=== PATIENT | female | born 1990 | race American Indian/Alaskan Native ===

== ENCOUNTER 2017-07-21 21:41 | Emergency (ER) | payer SELFPAY ==
[2017-07-21 22:32] VITALS: BMI 33.0
[2017-07-21 22:38] VITALS: BP 131/77; PULSE 80; RESP 20; TEMP 98.1; O2SAT 100
--- NOTE | 2017-07-21 23:28 | ED PDOC ---
Arrival/HPI <Jai Landin - Last Filed: 07/21/17 23:49> <Daniel Herrera - Last Filed: 07/22/17 03:59> - General Chief Complaint: Abdominal Pain Time Seen by Provider: 07/21/17 22:00 - History of Present Illness Narrative History of Present Illness (Text): 26 year old female with a past medical history significant for miscarriage last year at 6 weeks gestations who presents with 3 days of lower abdominal pain, discharge, and now increased spotting. She reports taking a urine test x2 that was negative. FDLMP was 06/29/17. She denies any dyspareunia, abnormal discharge, nausea, or vomiting. 07/21/17 23:26 (Daniel Herrera) Past Medical History - Provider Review Nursing Documentation Reviewed: Yes - Cardiac Hx Cardiac Disorders: No - Pulmonary Hx Respiratory Disorders: No - Neurological Other/Comment: Reflex Sympathetic Dystrophy - HEENT Hx HEENT Disorder: No - Renal Hx Renal Disorder: No - Endocrine/Metabolic Hx Endocrine Disorders: No - Hematological/Oncological Hx Blood Disorders: No - Integumentary Hx Dermatological Disorder: No - Musculoskeletal/Rheumatological Hx Musculoskeletal Disorders: No - Gastrointestinal Hx Gastrointestinal Disorders: No - Genitourinary/Gynecological Hx Genitourinary Disorders: No - Psychiatric Hx Psychophysiologic Disorder: No Hx Substance Use: No - Anesthesia Hx Anesthesia: No <Daniel Herrera - Last Filed: 07/22/17 03:59> Family/Social History - Physician Review Nursing Documentation Reviewed: Yes Family/Social History: No Known Family HX Smoking Status: Current Some Days Smoker Hx Alcohol Use: No Hx Substance Use: No <Daniel Herrera - Last Filed: 07/22/17 03:59> Allergies/Home Meds <Jai Landin - Last Filed: 07/21/17 23:49> <Daniel Herrera - Last Filed: 07/22/17 03:59> Allergies/Adverse Reactions: Allergies citric acid Allergy (Verified 07/21/17 22:33) VOMITING Review of Systems - Review of Systems Constitutional: Normal. absent: Weight Change, Fevers Eyes: absent: Vision Changes, Photophobia, Eye Pain ENT: absent: Hearing Changes, Tinnitus, Rhinorrhea Respiratory: Normal. absent: SOB, Cough, Sputum Cardiovascular: absent: Chest Pain, Palpitations, Edema Gastrointestinal: Abdominal Pain. absent: Stool Changes, Constipation Genitourinary Female: Vaginal Bleeding. absent: Dysuria, Frequency, Hematuria Musculoskeletal: absent: Arthralgias, Back Pain, Neck Pain Skin: Normal. absent: Rash, Pruritis, Skin Lesions Neurological: absent: Headache, Dizziness Endocrine: absent: Diaphoresis, Polyuria, Polydipsia Hemo/Lymphatic: absent: Easy Bleeding, Easy Bruising Psychiatric: absent: Depression, Suicidal Ideation <Dainel Herrera - Last Filed: 07/22/17 03:59> Physical Exam Temperature: Afebrile Blood Pressure: Normal Pulse: Regular Respiratory Rate: Normal Appearance: Positive for: Well-Appearing, Non-Toxic Pain Distress: Moderate Mental Status: Positive for: Alert and Oriented X 3 - Systems Exam Head: Present: Atraumatic, Normocephalic Pupils: Present: PERRL Extroacular Muscles: Present: EOMI Conjunctiva: Present: Normal Mouth: Present: Moist Mucous Membranes Pharnyx: Present: Normal. No: ERYTHEMA, EXUDATE Neck: Present: Normal Range of Motion. No: Meningeal Signs, JVD Respiratory/Chest: Present: Clear to Auscultation, Good Air Exchange, Respiratory Distress Cardiovascular: Present: Regular Rate and Rhythm, Normal S1, S2 Abdomen: Present: Normal Bowel Sounds. No: Tenderness, Distention, Peritoneal Signs Genitourinary/Pelvic Exam: Present: Vaginal Discharge, Vaginal Bleeding, Other ( absolutely no cervical motion tenderness. ). No: Adenexal Tenderness, Cervical Motion Tendernes Back: No: Normal Inspection, CVA Tenderness Upper Extremity: Present: Normal Inspection. No: Edema, Normal ROM Lower Extremity: Present: Normal Inspection. No: Edema, CALF TENDERNESS Neurological: Present: CN II-XII Intact, Speech Normal Skin: Present: Warm, Dry, Normal Color Lymphatic: No: Inguinal Adenopathy Psychiatric: Present: Alert, Oriented x 3, Normal Insight, Normal Concentration <Daniel Herrera - Last Filed: 07/22/17 03:59> Vital Signs Temp Pulse Resp BP Pulse Ox 07/21/17 22:37 98.1 F 80 20 131/77 100 Medical Decision Making <Jai Landin - Last Filed: 07/21/17 23:49> <Daniel Herrera - Last Filed: 07/22/17 03:59> ED Course and Treatment: Patient was seen and evaluated with the medical transcriber. Agree with HPI, clinical findings, treatment plan. (Jai Landin) Pelvic exam performed. Patient had no cervical motion tenderness or adnexal masses palpated. 07/22/17 00:38 Patient discharged with the below written instructions and prescriptions. 07/22/17 03:57 (Daniel Herrera) - Lab Interpretations Lab Results: 07/21/17 23:03 07/21/17 23:03 Lab Results 07/21/17 23:45: Urine Color Yellow, Urine Appearance Clear, Urine pH 8.0, Ur Specific [place] 1.015, Urine Protein Negative, Urine Glucose (UA) Negative, Urine Ketones Negative, Urine Blood Moderate H, Urine Nitrate Negative, Urine Bilirubin Negative, Urine Urobilinogen 0.2, Ur Leukocyte Esterase Trace H, Urine RBC 1 - 3, Urine WBC 2 - 5, Ur Epithelial Cells 0 - 2, Urine Bacteria Few , Urine HCG, Qual Negative 07/21/17 23:03: Sodium 140, Potassium 4.1, Chloride 101, Carbon Dioxide 30, Anion Gap 13, BUN 12, Creatinine 0.8, Est GFR ( Amer) > 60, Est GFR (Non- Af Amer) > 60, Random Glucose 87, Calcium 8.8, Total Bilirubin 0.3, AST 31, ALT 30, Alkaline Phosphatase 59, Total Protein 7.1, Albumin 3.9, Globulin 3.2, Albumin/Globulin Ratio 1.2, Lipase 70 07/21/17 23:03: WBC 8.0, RBC 4.89, Hgb 13.6, Hct 42.0, MCV 85.9, MCH 27.8, MCHC 32.4, RDW 13.6, Plt Count 285, MPV 9.9, Gran % 55.8, Lymph % (Auto) 34.0, [place] % (Auto) 7.5 H, Eos % (Auto) 2.3, Baso % (Auto) 0.4, Gran # 4.47, Lymph # 2.7, [place] # 0.6, Eos # 0.2, Baso # 0.03 - PA / LIGHT CLEANER / Resident Statement / has reviewed & agrees with the documentation as recorded. / has examined the patient and agrees with the treatment plan. <Jai Landin - Last Filed: 07/21/17 23:49> Disposition/Present on Arrival <Jai Landin - Last Filed: 07/21/17 23:49> - Present on Arrival Any Indicators Present on Arrival: No History of DVT/PE: No History of Uncontrolled Diabetes: No Urinary Catheter: No History of Decub. Ulcer: No History Surgical Site Infection Following: None - Disposition Have Diagnosis and Disposition been Completed?: Yes Disposition Time: 00:50 <Daniel Herrera - Last Filed: 07/22/17 03:59> - Disposition Diagnosis: Dysmenorrhea, Bacterial vaginosis Disposition: HOME/ ROUTINE Condition: STABLE Additional Instructions: [Ms. Mcdonald], thank you for letting us take care of you today. Your provider was [Dr. Herrera and Dr. Landin]. You were treated for [Dysmennorhea and Bacterial Vaginosis]. The emergency medical care you received today was directed at your acute symptoms. If you were prescribed any medication, please fill it and take as directed. It may take several days for your symptoms to resolve. Return to the Emergency Department if your symptoms worsen, do not improve, or if you have any other problems. Please contact your doctor or call one of the physicians/clinics you have been referred to that are listed on the Patient Visit Information form that is included in your discharge packet. Bring any paperwork you were given at discharge with you along with any medications you are taking to your follow up visit. Our treatment cannot replace ongoing medical care by a primary care provider (PCP) outside of the emergency department. Thank you for allowing the [facility] team to be part of your care today. Please follow up with your OBGYN within the next week. Please take any medication as directed. If you had an X-Ray or CT scan: A Radiologist will review the ED reading if any change in treatment is needed we will contact you. If you had a blood, urine, or wound culture: It will take several days for the results, if any change in treatment is needed we will contact you. If you had an STI test: It will take 48 hours for the results. Please call after 1 week if you have not heard back. Prescriptions: Lactobacillus Acidophilus [Acidophilus Lactobacilli] 1 each PO DAILY #7 capsule metroNIDAZOLE [Flagyl] 500 mg PO BID #14 tab Forms: [employer] (Frisian)
[2017-07-21 23:53] LABS: BASO # 0.03 K/mm3 (0.0-2.0); BASO % 0.4 % (0.0-3.0); EOS # 0.2 (0.0-0.7); EOS % 2.3 % (1.5-5.0); GRAN # 4.47 (1.4-6.5); GRAN % 55.8 % (50.0-68.0); LYMPH # 2.7 (1.2-3.4); MEAN CELL VOLUME 85.9 fl (80.0-105.0); MEAN CORPUSCULAR HEMOGLOBIN 27.8 pg (25.0-35.0); MEAN CORPUSCULAR HGB CONC 32.4 g/dl (31.0-37.0); MEAN PLATELET VOLUME 9.9 fl (7.0-11.0); MONO # 0.6 (0.1-0.6); MONO % 7.5 % (1.0-6.0); RED CELL DISTRIBUTION WIDTH 13.6 % (11.5-14.5)
[2017-07-22 00:01] LABS: URINE BILIRUBIN NEGATIVE (NEGATIVE); URINE BLOOD MODERATE (NEGATIVE); URINE GLUCOSE (UA) NEGATIVE (NEGATIVE); URINE KETONE NEGATIVE (NEGATIVE); URINE LEUKOCYTE ESTERASE TRACE Leu/uL (NEGATIVE); URINE PROTEIN NEGATIVE mg/dL (<30 mg/dL); URINE UROBILINOGEN 0.2 E.U./dL (<1 E.U./dL)
[2017-07-22 00:03] LABS: ALB/GLOB RATIO 1.2 (1.1-1.8); ALKALINE PHOSPHATASE 59 U/L (38-126); ALT/SGPT 30 U/L (7-56); AST/SGOT 31 U/L (14-36); BILIRUBIN,TOTAL 0.3 mg/dL (0.2-1.3); BLOOD UREA NITROGEN 12 mg/dL (7-21); CALCIUM 8.8 mg/dL (8.4-10.5); CARBON DIOXIDE 30 mmol/L (21-33); CHLORIDE 101 mmol/L (98-107); GFR AFRICAN-AMERICAN > 60; GLUCOSE,RANDOM 87 mg/dL (70-110); LIPASE 70 U/L (23-300); POTASSIUM 4.1 mmol/L (3.6-5.0); SODIUM 140 mmol/L (132-148); TOTAL PROTEIN 7.1 g/dL (5.8-8.3)
[2017-07-22 00:05] LABS: URINE APPEARANCE CLEAR (CLEAR); URINE COLOR YELLOW (YELLOW)
[2017-07-22 00:16] LABS: URINE BACTERIA FEW (NEG); URINE EPITHELIAL CELLS 0 - 2 /hpf (0-5)
== END 2017-07-22 01:10 | disposition home or self-care (01) ==
LOC: ED 21:41
DX: N94.6 Dysmenorrhea, unspecified (principal); N76.0 Acute vaginitis

== ENCOUNTER 2017-10-28 19:34 | Emergency (ER) | payer OTHER ==
[2017-10-28 19:35] VITALS: BMI 32.8
[2017-10-28 20:04] VITALS: O2SAT 98
--- NOTE | 2017-10-28 20:36 | ED PDOC ---
Arrival/HPI <Jai Landin - Last Filed: 10/28/17 23:47> - General Historian: Patient - History of Present Illness Time/Duration: Other (see hpi) Context: Home <Goldie Watts - Last Filed: 10/29/17 00:49> - General Chief Complaint: Female Genitourinary Time Seen by Provider: 10/28/17 20:35 - History of Present Illness Narrative History of Present Illness (Text): 10/28/17 20:36 This 27 yo female, gravid, , presents to this ED c/o pelvic cramping x 3 days. Patient stated she was 8 days late for her menstrual cycle. She had a positive test. Patient noted mild spotting 8 days ago, but it resolved the same day. Patient denies vaginal discharge, urinary urgency, hematuria, sob, cp, leg swelling, dizziness, or abnormal gait. LMP: 2016 (Goldie Watts) Past Medical History - Provider Review Nursing Documentation Reviewed: Yes - Cardiac Hx Cardiac Disorders: No - Pulmonary Hx Respiratory Disorders: Yes Hx Asthma: Yes - Neurological Hx Neurological Disorder: Yes Other/Comment: Reflex Sympathetic Dystrophy - HEENT Hx HEENT Disorder: No - Renal Hx Renal Disorder: No - Endocrine/Metabolic Hx Endocrine Disorders: No - Hematological/Oncological Hx Blood Disorders: No - Integumentary Hx Dermatological Disorder: No - Musculoskeletal/Rheumatological Hx Musculoskeletal Disorders: No - Gastrointestinal Hx Gastrointestinal Disorders: No - Genitourinary/Gynecological Hx Genitourinary Disorders: No - Psychiatric Hx Psychophysiologic Disorder: No Hx Substance Use: No - Surgical History Other/Comment: NERVE BLOCKS - Anesthesia Hx Anesthesia: Yes - Suicidal Assessment Feels Threatened In Home Enviroment: No <Goldie Watts - Last Filed: 10/29/17 00:49> Family/Social History - Physician Review Nursing Documentation Reviewed: Yes Family/Social History: Other (noncontributory) Smoking Status: Never Smoked Hx Alcohol Use: No Hx Substance Use: No <Goldie Watts - Last Filed: 10/29/17 00:49> Allergies/Home Meds <Jai Landin - Last Filed: 10/28/17 23:47> <Goldie Watts - Last Filed: 10/29/17 00:49> Allergies/Adverse Reactions: Allergies citric acid Allergy (Verified 10/28/17 19:54) RASH Home Medications: Home Meds Medication Instructions Recorded Confirmed Multivit/Folic Acid/I 1 tab PO DAILY 10/28/17 10/28/17 [] Review of Systems - Review of Systems Constitutional: Normal. absent: Fatigue, Weight Change, Fevers Eyes: Normal ENT: Normal Respiratory: Normal Cardiovascular: Normal Gastrointestinal: Abdominal Pain. absent: Constipation, Diarrhea, Nausea, Vomiting, Hematochezia, Hematemesis Genitourinary Female: Frequency, Vaginal Bleeding. absent: Dysuria, Hematuria, Vaginal Discharge Musculoskeletal: Normal. absent: Back Pain Skin: Normal Neurological: Normal. absent: Headache, Dizziness, Focal Weakness, Gait Changes , Speech Changes, Facial Droop, Disequilibrium, Seizure Endocrine: Normal Hemo/Lymphatic: Normal Psychiatric: Normal <Watts,Nah P - Last Filed: 10/29/17 00:49> Physical Exam Temperature: Afebrile Blood Pressure: Normal Pulse: Regular Respiratory Rate: Normal Appearance: Positive for: Well-Appearing, Non-Toxic, Comfortable Pain Distress: None Mental Status: Positive for: Alert and Oriented X 3 - Systems Exam Head: Present: Atraumatic, Normocephalic Pupils: Present: PERRL Extroacular Muscles: Present: EOMI Conjunctiva: Present: Normal Mouth: Present: Moist Mucous Membranes Neck: Present: Normal Range of Motion Respiratory/Chest: Present: Clear to Auscultation, Good Air Exchange. No: Respiratory Distress, Accessory Muscle Use Cardiovascular: Present: Regular Rate and Rhythm, Normal S1, S2. No: Murmurs Abdomen: Present: Normal Bowel Sounds. No: Tenderness, Distention, Peritoneal Signs Back: Present: Normal Inspection Upper Extremity: Present: Normal Inspection. No: Cyanosis, Edema Lower Extremity: Present: Normal Inspection. No: Edema Neurological: Present: GCS=15, CN II-XII Intact, Speech Normal, Motor Func Grossly Intact, Normal Sensory Function, Normal Cerebellar Funct, Gait Normal Skin: Present: Warm, Dry, Normal Color. No: Rashes Psychiatric: Present: Alert, Oriented x 3, Normal Insight, Normal Concentration <Watts,Nahim P - Last Filed: 10/29/17 00:49> Vital Signs Temp Pulse Resp BP Pulse Ox 10/28/17 22:14 82 17 143/89 98 01/10/18 20:02 98.5 F 79 16 135/73 98 Medical Decision Making <Jai Landin - Last Filed: 10/28/17 23:47> Re-evaluation Time: 23:50 Reassessment Condition: Re-examined, Improved - Lab Interpretations I have reviewed the lab results: Yes Interpretation: No clinic. lab abnormalty <Goldie Watts - Last Filed: 10/29/17 00:49> ED Course and Treatment: 10/28/17 23:49 Re-evaluation. Patient feels better. Discussed results and plan with patient who expresses understanding. All questions answered and there is agreement with the plan to discharge home with instructions. Patient stable for discharge. Return if symptoms persist or worsen. Patient was recommended to return to ED in 2 days for repeat of Beta Quant. If she is not able to see her AUTOMOTIVE ASSEMBLER. Return to ED sooner if pelvic pain retsurns or worsening of symptoms. Patient understood plan. (Goldie Watts) - Lab Interpretations Lab Results: 10/28/17 21:32 10/28/17 21:32 Lab Results 10/28/17 22:44: Blood Type O POSITIVE, Antibody Screen Negative, BBK History Checked No verified bt 10/28/17 21:32: Beta HCG, Quant 2044.70 H 10/28/17 21:32: Sodium 139, Potassium 3.8, Chloride 102, Carbon Dioxide 25, Anion Gap 15, BUN 9, Creatinine 0.8, Est GFR ( Amer) > 60, Est GFR (Non- Af Amer) > 60, Random Glucose 92, Calcium 8.9, Total Bilirubin 0.3, AST 23, ALT 29, Alkaline Phosphatase 46, Total Protein 7.4, Albumin 3.9, Globulin 3.5, Albumin/Globulin Ratio 1.1 10/28/17 21:32: Urine Color Yellow, Urine Appearance Clear, Urine pH 7.5, Ur Specific [place] 1.020, Urine Protein Negative, Urine Glucose (UA) Negative, Urine Ketones Trace H, Urine Blood Negative, Urine Nitrate Negative, Urine Bilirubin Negative, Urine Urobilinogen 1.0 H, Ur Leukocyte Esterase Negative, Urine HCG, Qual Positive 10/28/17 21:32: PT 13.1 H, INR 1.15 H, APTT 30.1 10/28/17 21:32: WBC 8.0, RBC 4.68, Hgb 13.2, Hct 40.5, MCV 86.5, MCH 28.2, MCHC 32.6, RDW 14.1, Plt Count 298, MPV 9.3, Gran % 59.8, Lymph % (Auto) 31.7, [place] % (Auto) 6.7 H, Eos % (Auto) 1.5, Baso % (Auto) 0.3, Gran # 4.76, Lymph # 2.5, [place] # 0.5, Eos # 0.1, Baso # 0.02 - RAD Interpretation Narrative RAD Interpretations (Text): 10/28/17 23:00 EXAM: US First Trimester, Transabdominal FINDINGS: Uterus: The uterus is poorly visualized. Uterus is anteflexed. Uterus measures approximately 7 x 3.6 x 5.3 cm. Endometrium cannot be visualized. Ovaries: Neither ovary could be identified. Bladder: The bladder is almost completely empty. IMPRESSION: Limited by body habitus and incomplete bladder distention EXAM: US , Transvaginal FINDINGS: Gestation: There is a small cystic structure in the endometrium of the lower uterine segment of the uterus, mean diameter 4.9 mm. No sac or pole identified Uterus: Endometrium in the fundus measures 17 mm in width Ovaries: Right ovary measures approximately 4 x 2.5 x 3.3 cm. Left ovary measures approximately 3.2 x 2.3 x 3 cm. There is flow in both ovaries on Doppler imaging. No mass. Free fluid: There is no free fluid. IMPRESSION: Small cystic structure suggesting early gestational sac in the lower uterine segment, ectopic versus impending ; no extrauterine ectopic gestation or free fluid identified Serial beta-hCG levels and follow up sonography advised Thank you for allowing us to participate in the care of your patient. Dictated and Authenticated by: Yina Kaiser MD (Goldie Watts) Radiology Orders: 10/28/17 21:02 OB TRANSVAGINAL [US] Stat - PA / POWER WHEELCHAIR MECHANIC / Resident Statement /DO has reviewed & agrees with the documentation as recorded. <Jai Landin - Last Filed: 10/28/17 23:47> Disposition/Present on Arrival <Jai Landin - Last Filed: 10/28/17 23:47> - Present on Arrival Any Indicators Present on Arrival: No History of DVT/PE: No History of Uncontrolled Diabetes: No Urinary Catheter: No History of Decub. Ulcer: No History Surgical Site Infection Following: None - Disposition Have Diagnosis and Disposition been Completed?: Yes Disposition Time: 00:06 Patient Plan: Discharge <Goldie Watts Jo Ann - Last Filed: 10/29/17 00:49> - Disposition Diagnosis: Pelvic pain affecting in first trimester, antepartum Disposition: HOME/ ROUTINE Patient Problems: Current Active Problems Problem Status Onset Pelvic pain affecting in first trimester, antepartum Acute Condition: GOOD Discharge Instructions (ExitCare): Ectopic (ED), Threatened Miscarriage (ED) Additional Instructions: Call private AUTOMOTIVE ASSEMBLER doctor office for a repeat of Beta Quant. blood test in 2 days. Return to emergency if symptoms worsen, or unable to see your AUTOMOTIVE ASSEMBLER in 2 days. Take medication as instructed. Prescriptions: Multivit/Folic Acid/I [ Plus] 1 tab PO DAILY #30 tab Referrals: Keysha Celestin MD [Primary Care Provider] - Follow up with primary [facility] [Outside] - [facility] with [facility] [Outside] - Follow up with primary Forms: [employer] (Serbian)
[2017-10-28 21:45] LABS: BASO # 0.02 K/mm3 (0.0-2.0); BASO % 0.3 % (0.0-3.0); EOS # 0.1 (0.0-0.7); EOS % 1.5 % (1.5-5.0); GRAN # 4.76 (1.4-6.5); GRAN % 59.8 % (50.0-68.0); HEMOGLOBIN 13.2 g/dL (12.0-16.0); LYMPH # 2.5 (1.2-3.4); LYMPH % 31.7 % (22.0-35.0); MEAN CELL VOLUME 86.5 fl (80.0-105.0); MEAN CORPUSCULAR HEMOGLOBIN 28.2 pg (25.0-35.0); MEAN CORPUSCULAR HGB CONC 32.6 g/dl (31.0-37.0); MEAN PLATELET VOLUME 9.3 fl (7.0-11.0); MONO # 0.5 (0.1-0.6); MONO % 6.7 % (1.0-6.0); RBC 4.68 10^6/uL (3.5-6.1); RED CELL DISTRIBUTION WIDTH 14.1 % (11.5-14.5)
[2017-10-28 21:46] LABS: PH,URINE 7.5 (4.7-8.0); URINE BILIRUBIN NEGATIVE (NEGATIVE); URINE BLOOD NEGATIVE (NEGATIVE); URINE GLUCOSE (UA) NEGATIVE (NEGATIVE); URINE LEUKOCYTE ESTERASE NEGATIVE Leu/uL (NEGATIVE); URINE NITRATE NEGATIVE (NEGATIVE); URINE PROTEIN NEGATIVE mg/dL (<30 mg/dL)
[2017-10-28 21:49] LABS: URINE APPEARANCE CLEAR (CLEAR); URINE COLOR YELLOW (YELLOW)
[2017-10-28 21:50] LABS: HCG,QUALITATIVE URINE POSITIVE (NEGATIVE)
[2017-10-28 21:55] LABS: INR 1.15 (0.93-1.08); PARTIAL THROMBOPLASTIN TIME 30.1 Seconds (25.1-36.5); PROTHROMBIN TIME 13.1 SECONDS (9.4-12.5)
[2017-10-28 22:05] LABS: ALB/GLOB RATIO 1.1 (1.1-1.8); ALBUMIN 3.9 g/dL (3.0-4.8); ALT/SGPT 29 U/L (7-56); AST/SGOT 23 U/L (14-36); BLOOD UREA NITROGEN 9 mg/dL (7-21); CALCIUM 8.9 mg/dL (8.4-10.5); GFR AFRICAN-AMERICAN > 60; GFR NON-AFRICAN AMERICAN > 60
[2017-10-28 22:15] VITALS: RESP 17
--- NOTE | 2017-10-28 22:56 | US ---
EXAM: US First Trimester, Transabdominal CLINICAL HISTORY: 27 years old, female; Pain; complicated by abdominal or pelvic pain; Lower; First trimester; Gestational age or lmp: 09/15/2017; TECHNIQUE: Real-time transabdominal obstetrical ultrasound of the maternal pelvis and a first trimester with image documentation. COMPARISON: There are no prior studies for comparison. FINDINGS: Uterus: The uterus is poorly visualized. Uterus is anteflexed. Uterus measures approximately 7 x 3.6 x 5.3 cm. Endometrium cannot be visualized. Ovaries: Neither ovary could be identified. Bladder: The bladder is almost completely empty. IMPRESSION: Limited by body habitus and incomplete bladder distention EXAM: US , Transvaginal EXAM DATE/TIME: 10/28/2017 9:02 PM CLINICAL HISTORY: 27 years old, female; Pain; complicated by abdominal or pelvic pain; Lower; First trimester; Gestational age or lmp: 09/15/2017; TECHNIQUE: Real-time transvaginal obstetrical ultrasound of the maternal pelvis and a first trimester with image documentation. Transvaginal imaging was used for better evaluation of the fetus and adnexa. COMPARISON: There are no prior studies for comparison. FINDINGS: Gestation: There is a small cystic structure in the endometrium of the lower uterine segment of the uterus, mean diameter 4.9 mm. No sac or pole identified Uterus: Endometrium in the fundus measures 17 mm in width Ovaries: Right ovary measures approximately 4 x 2.5 x 3.3 cm. Left ovary measures approximately 3.2 x 2.3 x 3 cm. There is flow in both ovaries on Doppler imaging. No mass. Free fluid: There is no free fluid. IMPRESSION: Small cystic structure suggesting early gestational sac in the lower uterine segment, ectopic versus impending ; no extrauterine ectopic gestation or free fluid identified Serial beta-hCG levels and follow up sonography advised
[2017-10-29 01:00] VITALS: BP 123/88; PULSE 85; TEMP 98.2
== END 2017-10-29 01:00 | disposition home or self-care (01) ==
LOC: ED 19:34
DX: O26.891 Other specified pregnancy related conditions, first trimester (principal); R10.2 Pelvic and perineal pain

== ENCOUNTER 2019-02-28 22:39 | Emergency (ER) | payer MEDICAID, OTHER ==
--- NOTE | 2019-02-28 22:50 | ED PDOC ---
Arrival/HPI <Ever Carpio - Last Filed: 02/28/19 23:57> - General Historian: Patient - History of Present Illness Narrative History of Present Illness (Text): 02/28/19 22:58 Patient is a 28 yo AA female with complex regional pain syndrome who presents with bleeding and pain at an abscess site on her R gluteal region. Patient states that she went to an urgent care yesterday where they I&D'd the abscess. They packed it and told her to return in 2 days for follow-up. They also prescribed her Bactrim and Keflex, which she is taking. Patient states today she was sitting at work and pain was increasing. She then stood up and noticed a lot of blood coming from the lesion. She has been taking Naproxen Q12H for pain. Patient states that she had several of these abscesses "pop-up" at once on her buttock and hand but the others came to a head and resolved on their own. Patient admits to to shaving her buttock region. <Khadijah Castellanos - Last Filed: 03/01/19 00:00> - General Chief Complaint: Wound Check Time Seen by Provider: 02/28/19 22:41 Past Medical History - Provider Review Nursing Documentation Reviewed: Yes Primary Care Provider: Keysha Celestin - Infectious Disease Hx of Infectious Diseases: None - Cardiac Hx Cardiac Disorders: No Hx Hypertension: No - Pulmonary Hx Asthma: Yes - Neurological Hx Neurological Disorder: Yes Other/Comment: Reflex Sympathetic Dystrophy - HEENT Hx HEENT Disorder: No - Renal Hx Renal Disorder: No - Endocrine/Metabolic Hx Endocrine Disorders: No - Hematological/Oncological Hx Blood Disorders: No - Integumentary Hx Dermatological Disorder: No - Musculoskeletal/Rheumatological Hx Musculoskeletal Disorders: No - Gastrointestinal Hx Gastrointestinal Disorders: No - Genitourinary/Gynecological Hx Genitourinary Disorders: No Other/Comment: miscarriage - Psychiatric Hx Depression: No Hx Substance Use: No - Surgical History Other/Comment: NERVE BLOCKS - Anesthesia Hx Anesthesia: Yes Hx Anesthesia Reactions: No - Suicidal Assessment Feels Threatened In Home Enviroment: No <Khadijah Castellanos - Last Filed: 03/01/19 00:00> Family/Social History - Physician Review Nursing Documentation Reviewed: Yes Family/Social History: Unknown Family HX Smoking Status: Never Smoked Hx Alcohol Use: No Hx Substance Use: No <Khadijah Castellanos Last Filed: 03/01/19 00:00> Allergies/Home Meds <LalacassidyMayoEver - Last Filed: 02/28/19 23:57> <Khadijah Castellanos - Last Filed: 03/01/19 00:00> Allergies/Adverse Reactions: Allergies citric acid Allergy (Verified 02/28/19 22:47) RASH strawberry, kiwi, orange,and soda Home Medications: Home Meds Medication Instructions Recorded Confirmed Cephalexin [Keflex] 500 mg PO BID 02/28/19 02/28/19 Sulfamethoxazole/Trimethoprim 1 tab PO 02/28/19 [Bactrim DS Tab] Review of Systems - Review of Systems Constitutional: Fevers (subjective) Eyes: Normal ENT: Normal Respiratory: absent: SOB, Cough Cardiovascular: absent: Chest Pain, Palpitations Gastrointestinal: absent: Abdominal Pain, Nausea, Vomiting Genitourinary Female: absent: Dysuria, Hematuria Skin: Abscess Neurological: absent: Headache, Dizziness Endocrine: absent: Diaphoresis Hemo/Lymphatic: absent: Adenopathy <Khadijah Castellanos Last Filed: 03/01/19 00:00> Physical Exam Vital Signs Temp Pulse Resp BP Pulse Ox 02/28/19 22:57 98.4 F 92 H 18 123/74 100 <PalomomeghannMayoEver - Last Filed: 02/28/19 23:57> Vital Signs Reviewed: Yes Temperature: Afebrile Blood Pressure: Normal Pulse: Regular Respiratory Rate: Normal Appearance: Positive for: Non-Toxic Pain Distress: Moderate Mental Status: Positive for: Alert and Oriented X 3 - Systems Exam Head: Present: Atraumatic, Normocephalic Pupils: Present: PERRL Extroacular Muscles: Present: EOMI Conjunctiva: Present: Normal Mouth: Present: Moist Mucous Membranes Respiratory/Chest: Present: Clear to Auscultation, Good Air Exchange Cardiovascular: Present: Regular Rate and Rhythm, Normal S1, S2 Neurological: Present: GCS=15, CN II-XII Intact, Speech Normal Skin: Present: Other (abscess with packing on R mid gluteal region, 4x4 cm area of surrounding induration, purulent drainage and blood) Psychiatric: Present: Alert, Oriented x 3, Normal Insight, Normal Concentration <Khadijah Castellanos - Last Filed: 03/01/19 00:00> Medical Decision Making - Medication Orders Current Medication Orders: Discontinued Medications Oxycodone/Acetaminophen (Percocet 5/325 Mg Tab) 1 tab PO STAT STA Stop: 02/28/19 23:22 Last Admin: 02/28/19 23:25 Dose: 1 tab MAR Pain Assessment Document 02/28/19 23:25 AD (Rec: 02/28/19 23:39 AD [id number]) Pain Reassessment Is this a pain reassessment? No Presence of Pain Presence of Pain Yes Pain Scale Used Protocol: PSCALES Pain Scale Used Numeric Description Intensity of Pain at present 8 <Ever Carpio - Last Filed: 02/28/19 23:57> - Medication Orders Current Medication Orders: 02/28/19 23:41 Percocet 5/325 mg PO - Procedure PROCEDURE NOTE (Text): 02/28/19 23:57 Procedure: Incision & Drainage Performed by the emergency provider Indication: Abscess Location: Right gluteal region Preparation: The area was prepped and draped in the usual sterile fashion and was cleansed with betadine. Local infiltration of Lidocaine 1% with Epi 10 cc was used for anesthesia. Procedure: Previous packing was removed Approximately 8 mL of purulent fluid and blood was obtained. The abscess was packed. A dressing was applied. Post-Procedure: On exam the abscess is notably less fluctuant. The patient tolerated the procedure well, and there were no complications. Cultured: YES <Khadijah Castellanos - Last Filed: 03/01/19 00:00> Disposition/Present on Arrival <Ever Carpio - Last Filed: 02/28/19 23:57> - Present on Arrival Any Indicators Present on Arrival: No History of DVT/PE: No History of Uncontrolled Diabetes: No Urinary Catheter: No History Surgical Site Infection Following: None - Disposition Have Diagnosis and Disposition been Completed?: Yes Disposition Time: 23:42 Patient Plan: Discharge <Khadijah Castellanos - Last Filed: 03/01/19 00:00> - Disposition Diagnosis: Abscess of right buttock Disposition: HOME/ ROUTINE Patient Problems: Current Active Problems Problem Status Onset Abscess of right buttock Acute Condition: IMPROVED Discharge Instructions (ExitCare): Skin Abscess, Abscess Incision and Drainage (DC) Additional Instructions: Continue taking antibiotics previously prescribed (Keflex and Bactrim). Apply hot compresses to the area every 4 hours. Monitor for any changes in skin texture, purulent discharge, or worsening pain. Please return to the emergency room in 5 days for wound re-evaluation. Referrals: Keysha Celestin MD [Primary Care Provider] - Follow up with primary Forms: [facility] (E[place]ian), WORK NOTE
[2019-02-28 22:53] VITALS: BMI 33.5
[2019-02-28 22:58] VITALS: RESP 18; TEMP 98.4; O2SAT 100
[2019-02-28] MEDS ORDERED: Oxycodone/Acetaminophen 5/325 mg Tab PO STA (23:21)
[2019-03-01 00:42] VITALS: BP 125/76; PULSE 86
== END 2019-02-28 23:47 | disposition home or self-care (01) ==
LOC: ED 22:39
DX: L02.31 Cutaneous abscess of buttock (principal)

== ENCOUNTER 2019-03-02 20:56 | Emergency (ER) | payer MEDICAID, OTHER ==
[2019-03-02 20:56] VITALS: BMI 35.3
[2019-03-02 23:49] VITALS: BP 142/94; PULSE 92; RESP 18; TEMP 98.8; O2SAT 98
--- NOTE | 2019-03-03 00:30 | ED PDOC ---
Arrival/HPI - General Chief Complaint: Abnormal Skin Integrity Time Seen by Provider: 03/02/19 23:47 Historian: Patient - History of Present Illness Narrative History of Present Illness (Text): 28 year old female with no significant past medical history presents to the emergency department for dressing change of right gluteal wound. Patient was seen here on 02/28/19 for I&D of right gluteal abscess and had packing placed at that time. Pt has experienced persistent pain and states she was told to return in 5 days for packing removal. She is taking keflex and bactrim as prescribed. Denies fever, chill, abdominal pain, nausea, vomiting, dizziness, or any other associated complaints. Past Medical History - Provider Review Nursing Documentation Reviewed: Yes - Infectious Disease Hx of Infectious Diseases: None - Cardiac Hx Cardiac Disorders: No Hx Hypertension: No - Pulmonary Hx Respiratory Disorders: Yes Hx Asthma: Yes - Neurological Hx Neurological Disorder: Yes Other/Comment: Reflex Sympathetic Dystrophy - HEENT Hx HEENT Disorder: No - Renal Hx Renal Disorder: No - Endocrine/Metabolic Hx Endocrine Disorders: No - Hematological/Oncological Hx Blood Disorders: No - Integumentary Hx Dermatological Disorder: No - Musculoskeletal/Rheumatological Hx Musculoskeletal Disorders: No - Gastrointestinal Hx Gastrointestinal Disorders: No - Genitourinary/Gynecological Hx Genitourinary Disorders: No Other/Comment: miscarriage - Psychiatric Hx Depression: No Hx Substance Use: No - Surgical History Other/Comment: NERVE BLOCKS - Anesthesia Hx Anesthesia: Yes Hx Anesthesia Reactions: No - Suicidal Assessment Feels Threatened In Home Enviroment: No Family/Social History - Physician Review Nursing Documentation Reviewed: Yes Family/Social History: No Known Family HX Smoking Status: Never Smoked Hx Alcohol Use: No Hx Substance Use: No Allergies/Home Meds Allergies/Adverse Reactions: Allergies citric acid Allergy (Verified 03/02/19 23:52) RASH strawberry, kiwi, orange,and soda Home Medications: Home Meds Medication Instructions Recorded Confirmed Cephalexin [Keflex] 500 mg PO BID 02/28/19 02/28/19 Sulfamethoxazole/Trimethoprim 1 tab PO 02/28/19 [Bactrim DS Tab] Review of Systems - Review of Systems Constitutional: Normal. absent: Fevers Respiratory: Normal. absent: SOB, Cough Cardiovascular: Normal. absent: Chest Pain, Palpitations, Syncope Gastrointestinal: Normal. absent: Abdominal Pain, Nausea, Vomiting Genitourinary Female: Normal. absent: Dysuria, Frequency, Vaginal Discharge Musculoskeletal: Normal. absent: Back Pain, Neck Pain Skin: Abscess (right buttock) Neurological: Normal. absent: Headache, Dizziness Endocrine: Normal Hemo/Lymphatic: Normal Psychiatric: Normal Physical Exam Vital Signs Reviewed: Yes Vital Signs Temp Pulse Resp BP Pulse Ox 03/02/19 23:45 98.8 F 92 H 18 142/94 H 98 Temperature: Afebrile Blood Pressure: Hypertensive Pulse: Regular Respiratory Rate: Normal Appearance: Positive for: Well-Appearing, Non-Toxic, Comfortable Pain Distress: None Mental Status: Positive for: Alert and Oriented X 3 - Systems Exam Head: Present: Atraumatic, Normocephalic Pupils: Present: PERRL Extroacular Muscles: Present: EOMI Conjunctiva: Present: Normal Mouth: Present: Moist Mucous Membranes Neck: Present: Normal Range of Motion Respiratory/Chest: Present: Clear to Auscultation, Good Air Exchange. No: Respiratory Distress, Accessory Muscle Use Cardiovascular: Present: Regular Rate and Rhythm, Normal S1, S2 Abdomen: No: Tenderness Upper Extremity: Present: Normal Inspection, Normal ROM Lower Extremity: Present: Normal ROM, Neurovascularly Intact, Other (2cm horizontal linear incision to right mid buttock with packing in place; mild surrounding induration without increased warmth or erythema; no fluctuance or wound drainage.). No: Temperature Abnormalties Neurological: Present: GCS=15, Speech Normal, Motor Func Grossly Intact, Normal Sensory Function, Gait Normal Skin: Present: Warm, Dry, Normal Color. No: Rashes Psychiatric: Present: Alert, Oriented x 3, Normal Insight, Normal Concentration Medical Decision Making ED Course and Treatment: Initial Plan: * Packing removal * Re-dress wound * Reassess and Disposition Packing removed from wound without difficulty, as it has been 2 days since I&D. No purulence or fluctuance noted. Wound flushed with normal saline and sterile dressing applied by nursing. Patient examined at bedside by Dr. Ramirez who agrees with plan of care and disposition of discharging patient home. Recommends not to repack abscess at this time. Advised PMD followup and to continue antibiotics. Diagnostic testing results and plan of care discussed with patient. Strict instructions given regarding prescription use, importance of followup, and signs/symptoms to return to ER including fever, nausea, back pain, or any other new/worsening symptoms. Pt verbalized understanding of discussion. Patient is A&Ox3, ambulating with steady gait, with vital signs stable for discharge. Disposition/Present on Arrival - Present on Arrival Any Indicators Present on Arrival: No History of DVT/PE: No History of Uncontrolled Diabetes: No Urinary Catheter: No History of Decub. Ulcer: No History Surgical Site Infection Following: None - Disposition Have Diagnosis and Disposition been Completed?: Yes Diagnosis: Dressing change Disposition: HOME/ ROUTINE Disposition Time: 00:14 Patient Plan: Discharge Condition: STABLE Discharge Instructions (ExitCare): Abscess Incision and Drainage, Wound Care (DC) Additional Instructions: Keep wound clean dry and covered Ibuprofen every 8 hours as needed, take with food Continue antibiotics as prescribed Followup with primary doctor within 2 days Return to ER with any new/worsening symptoms Prescriptions: Ibuprofen [Motrin Tab] 600 mg PO Q8 PRN #30 tab PRN Reason: Pain, Moderate (4-7) Referrals: Abbey Isbell MD [Medical Doctor] - [place] up with primary [facility] [place] [facility] [place] - Follow up with primary Forms: [facility] (Mongolian), WORK NOTE
== END 2019-03-03 01:22 | disposition home or self-care (01) ==
LOC: ED 20:56
DX: Z48.01 Encounter for change or removal of surgical wound dressing (principal)